=== PATIENT | male | born 1955 | race Caucasian/White ===

== ENCOUNTER 2017-02-18 10:57 | Day surgery (SDC) | payer BC ==
--- NOTE | ~2017-02-18 | EGD ---
EGD REPORT [facility] [address] [address] NAME: PJ LUO : [birth year] STATUS : REG [facility]#: [id number] AGE: 61 ADM/REG DATE : 02/18/17 MR#: [id number] REPORT SERV DATE: 02/18/17 DICTATED BY: STACEY WEBB DATE: 02/18/17 REPORT STATUS : Draft TRANSCRIBED BY: [facility] DATE: 02/18/17 Endoscopy Center Patient Name: Pj Luo Date of : 1955 Attending MD: STACEY WEBB MD Procedure Date No Time: 02/18/2017 Procedure: Upper GI endoscopy Indications: Heartburn, Suspected esophageal reflux, Unexplained chest pain, Nausea Referring MD: EZEKIEL SALMON MD Medicines: as per anesthesia Complications: No immediate complications. Procedure: Pre-Anesthesia Assessment: - ASA Grade Assessment: II - A patient with mild systemic disease. After obtaining informed consent, the endoscope was passed under direct vision. Throughout the procedure, the patient's blood pressure, pulse, and oxygen saturations were monitored continuously. The GIF [id number] was introduced through the mouth, and advanced to the third part of duodenum. The upper GI endoscopy was accomplished without difficulty. The patient tolerated the procedure. Findings: The examined esophagus was normal. Localized mild inflammation characterized by erythema was found in the gastric antrum. Biopsies were taken with a cold forceps for histology. The cardia and gastric fundus were normal on retroflexion. One non-bleeding cratered duodenal ulcer was found in the duodenal bulb. The lesion was 12 mm in largest dimension. Impression: - Normal esophagus. - Gastritis. Biopsied. - One duodenal ulcer with clean base. Recommendation: - Await pathology results. - Follow an antireflux regimen. - Use Prilosec (omeprazole) 40 mg PO BID. - Use sucralfate tablets 1 gram PO QID. Procedure Code(s): --- Professional --- 35820, Esophagogastroduodenoscopy, flexible, transoral; with biopsy, single or multiple EGD REPORT [facility] [address] [place], [place] [address]. [address] NAME: PJ LUO : [birth year] STATUS : REG [facility]#: [id number] AGE: 61 ADM/REG DATE : 02/18/17 MR#: [id number] REPORT SERV DATE: 02/18/17 DICTATED BY: STACEY WEBB. DATE: 02/18/17 REPORT STATUS : Draft TRANSCRIBED BY: [email or web address] DATE: 02/18/17 Diagnosis Code(s): --- Professional --- K29.70, Gastritis, unspecified, without bleeding K26.9, Duodenal ulcer, unspecified as acute or chronic, without hemorrhage or perforation R12, Heartburn R07.9, Chest pain, unspecified R11.0, Nausea CPT copyright 2013 [employer]. All rights reserved. The codes documented in this report are preliminary and upon circuit designer review may be revised to meet current compliance requirements. STACEY WEBB MD 02/18/2017 1:00 PM This report has been signed electronically. Number of Addenda: 0 Note Initiated On: 02/18/2017 12:23 PM Scope Withdrawal Time 0 hours 0 minutes 0 seconds [address] [facility] [place] [address]
[~2017-02-18 10:57] MED LIST: BALSALAZIDE750 MG PO; ETODOLAC400 MG OR; LYRICA50 PO; PCET PO; PRILOSEC40 MG PO; SAS500 PO; SUCR PO; ULTRAM50 PO
[2017-05-20] MEDS ORDERED: AMIT10 PO (12:33)
[2017-05-20] MEDS ORDERED: FLOMAX4 PO (12:33)
== END 2017-02-18 23:59 | disposition home or self-care (01) ==
LOC: DMU 10:57
PROVIDERS: Internal Medicine Gastroenterology
PROC: 0DB68ZX Excision of Stomach, Via Natural or Artificial Opening Endoscopic, Diagnostic (ICD-10-PCS; principal; 2017-02-18 12:00)
DX: K29.50 Unspecified chronic gastritis without bleeding (principal); K26.9 Duodenal ulcer, unspecified as acute or chronic, without hemorrhage or perforation
CPT/HCPCS: 88305; 88342